=== PATIENT | male | born 2005 ===

== ENCOUNTER 2025-01-30 19:21 | Outpatient (REF) | payer OTHER, SELFPAY ==
--- NOTE | ~2025-01-30 | MR_ITS ---
EXAMINATION: MR SHOULDER WITHOUT CONTRAST, LEFT CLINICAL INFORMATION: Dislocation COMPARISON: None available. TECHNIQUE: MRI of the shoulder without contrast was performed on a high-field scanner. FINDINGS: ROTATOR CUFF: Supraspinatus: Mild tendinosis Infraspinatus: Intact Teres minor: Intact Subscapularis: Mild tendinosis No muscle atrophy or fatty infiltration. BICEPS: Intact CORACOACROMIAL ARCH: The undersurface of the acromion is curved with no subacromial spur. Acromioclavicular joint space is maintained. Mild T2 signal in the acromion, could reflect physiological variant signal, mild osseous contusion LABRUM/CAPSULE: There is a tear of the anterior labrum. T2 signal in the superior labrum and the posterosuperior labrum, suspicious for involvement by tear. Inferior glenohumeral ligament/capsule is intact GLENOHUMERAL JOINT/MARROW: Hill-Sachs injury, with marrow edema, with bony depression of the posterior humeral head measuring 2.3 x 0.9 cm, depression measuring approximately 0.6 cm. Mild edema of the anteroinferior bony glenoid, suggestive osseous contusion. No displaced fracture fracture is. Correlate with x-ray. Large joint effusion. MR/MR shoulder LT wo con IMPRESSION: * Mild supraspinatus and subscapularis tendinosis. * Anteroinferior labrum is torn.. Abnormal findings suggestive of tear involving the superior and the posterosuperior labrum as well, detailed above. * Hill-Sachs injury measuring 2.3 x 0.9 cm. Associated marrow edema. * Mild edema in the anteroinferior glenoid, suggestive osseous contusion. No displaced fractures identified. Correlate with x-ray. *Large glenohumeral joint effusion. *Signal in the acromion could reflect physiological variant signal versus osseous contusion. Electronically signed by: Pj Rodriguez MD 01/31/2025 09:21 AM [facility]
--- OUTSIDE RECORDS SUMMARY | 2025-01-30 21:08 | XMS_ITS | Patient Health Record ---
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
--- OUTSIDE RECORDS SUMMARY | 2025-01-30 21:08 | XMS_ITS | Clinical Summary ---
Author Organization [facility] ([facility]) Address [address] [place] [address] Care Team Providers Care Filtration Supervisor Name Role Phone Hesham Messer MD Primary Care Provider [phone] Allergies No known active allergies Medications No known medications Active Problems Problem Noted Date Diagnosed Date Distal radius fracture 12/24/2014 Other closed fractures of distal end of radius ( alone) 11/24/2014 Family History Medical History Relation Name Comments No Known History Mother Relation Name Status Comments Mother Social History Tobacco Use Types Packs/Day Years Used Date Smoking Tobacco: Never Passive Smoke Exposure: Yes Tobacco Cessation:Counseling Given: Not Answered Alcohol Use Standard Drinks/Week Comments No 0 (1 standard drink = 0.6 oz pur e alcohol) Utilities Answer Date Recorded Utilities at risk Not on file 10/04/2022 Interpersonal Safety Assessment In Office Answer Date Recorded Signs and Symptoms of Abuse or Neglect No 12/08/2022 Physically Abused Not on file 12/08/2022 Feels unsafe Not on file 12/08/2022 Sex and Gender Information Value Date Recorded Sex Assigned at Not on file Legal Sex Male 3:41 AM EDT Gender Identity Not on file Sexual Orientation Not on file Last Filed Vital Signs Vital Sign Reading Time Taken Comments Blood Pressure 113/71 12/24/2014 8:42 AM EDT Pulse - - Temperature 36 C (96.8 F) 12/24/2014 8:42 AM EDT Respiratory Rate - - Oxygen Saturation - - Inhaled Oxygen Concentration - - Weight 99.3 kg (218 lb 14.7 oz) 12/29/2022 8:59 AM EDT Height 190.5 cm (6' 3 ) 12/29/2022 8:59 AM EDT Body Mass Index 27.36 12/29/2022 8:59 AM EDT Plan of Treatment Health Maintenance Due Date Last Done Comments HIV Screening (Once) 2004 Hepatitis C Screening (Once) 2004 Meningococcal B Vaccine (1 of 2 - Standard) 2020 COVID-19 Vaccine (3 - season) 2024 06/01/2021, 11/24/2020 Influenza Vaccine (#1) 2024 11/16/2019 Tetanus Vaccine (7 - Td or Tdap) 09/22/2026 09/22/2016, 07/16/2010, 06/22/2006, Additional history exists Zoster Vaccine (1 of 2) 2054 07/16/2010, 06/22 Pneumonia Age 0-64 Aged Out 09/09/2005, 06/07/2005 No longer eligible based on patient's age to complete this topic Hepatitis B Vaccine Completed 11/15/2005, 04/05/2005, 01/05/2005 HiB Vaccines Completed 05/02/2006, 08/13, 06/07/2005, Additional history exists HPV Vaccines Completed 11/16/2019, 09/22/2016 Meningococcal Vaccine Completed 10/04/2022, 017 Hepatitis A Vaccine Aged Out No longe r eligible based on patient's age to complete this topic Insurance * Guarantor: SAEED,ALESSANDRA Account Type Relation to Patient Date of Phone Billing Address Personal/Family Mother 1982 [id number] [place] [address] [employer] Care Teams Filtration Supervisor Relationship Specialty [place] [id number] [place] [address] PCP - General Pediatrics 11/24/14
--- OUTSIDE RECORDS SUMMARY | 2025-01-30 21:08 | XMS_ITS | Clinical Summary ---
Author Organization [facility] Address [address] [place], [place] [id number] Phone Care Team Providers Care Keyseater Operator Name Role Phone Aleksander Louie Primary Care Provider [phone] Social History Tobacco Use Types Packs/Day Years Used Date Smoking Tobacco: Never Assessed Education Answer Date Recorded Are you interested in more education? Not on denilson e 02/10/2024 Are you concerned about learning? Not on file 02/10/2024 No 02/10/2024 No 02/10/2024 Digital Access Answer Date Recorded No 02/10/2024 No 02/10/2024 Reliable internet access at home? Not on file 02/10/2024 Device with a working camera? Not on file Sex and Gender Information Value Date Recorded Sex Assigned at Not on file Legal Sex Male 3:19 PM EST Gender Identity Not on file Sexual Orientation Not on file Plan of Treatment Health Maintenance Due Date Last Done Comments MMR VACCINES (1 of 1 - Stand hebert series) 2005 DEVELOPMENTAL/BEHAVIORAL SCR EENING (PHQ, PSC, or SWYC) 01/01/2008 COMBINED DTaP,Tdap,Td (1 - Tdap) 01/01/2012 DEPRESSION SCREENING 2016 SMOKING Hx and SMOKELESS TOB ACCO SCREENING 2017 VARICELLA VACCINES (1 of 2 - 13+ 2-dose series) 2017 HPV VACCINES (1 - Male 3-dos e series) 01/01/2020 MENINGOCOCCAL VACCINES (B) ( 1 of 2 - Standard) 2020 ADOLESCENT UNIVERSAL LIPID SCREENING 2021 HEPATITIS C SCREENING 2022 HIV ONE-TIME SCREENING (18-6 5 YEARS) 2022 INFLUENZA VACCINE (#1) 2024 COVID-19 VACCINE (1 - 2024-2 6 season) 2024 HEPATITIS A VACCINES Aged Out No long er eligible based on patient's age to complete this topic HIB VACCINES Aged Out No longer eligi ble based on patient's age to complete this topic IPV VACCINES Aged Out No longer eligi ble based on patient's age to complete this topic MENINGOCOCCAL VACCINES (ACWY) Aged Out No longer eligible based on patient's age to complete this topic PNEUMOCOCCAL VACCINES (0-49 years) Aged Out No longer eligible based on patient's age to complete this topic Medical Devices Not on file Insurance [facility] [employer] T[place] [id number] [address] [place] GENERIC COMMERCIAL [facility] GENERIC COMMERCIAL [employer]UTHIE [employer] GENERIC COMMERCIAL RUTHIE SANDERS GENERIC COMMERCIAL [place] [id number] [facility] [facility] [place] [id number] Care Teams Keyseater Operator Relationship Specialty Start Date End Date Aleksander Louie DO [address] [place] [id number] PCP - General Family Medicine 02/10/24 Additional Source Comments The information contained in this document represents components of the legal health record. It is not the complete legal health record.[facility]
== END 2025-01-30 19:22 | disposition home or self-care (01) ==
LOC: HO.MRI 19:21
PROVIDERS: Visit Provider Family Medicine
DX: S43.005A Unspecified dislocation of left shoulder joint, initial encounter (principal)
CPT/HCPCS: 73221

== ENCOUNTER → 2025-01-30 19:25 | Outpatient (BNV) | payer OTHER, SELFPAY | PROVIDERS: Visit Provider Radiology Diagnostic Ultrasound | DX: S42.295A Other nondisplaced fracture of upper end of left humerus, initial encounter for closed fracture (principal) | CPT/HCPCS: 73221 ==

== ENCOUNTER 2025-02-03 12:16 | Outpatient (AMB) | payer OTHER, SELFPAY ==
--- NOTE | 2025-02-03 12:17 | A.OFFVIS_ITS ---
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 On failed closed reduction obtain an MRI ordered and obtained. No further problems. Has been daron to restart PT. Denies numbness and tingling. Physical Exam Exam Exam: Bruising over the lateral deltoid but skin intact to light touch lateral deltoid. Firing EHL/FDP/IO Results Reviewed Results Reviewed: I personally reviewed the MR images. * Mild supraspinatus and subscapularis tendinosis. * Anteroinferior labrum is torn.. Abnormal findings suggestive of tear involving the superior and the posterosuperior labrum as well, detailed above. * Hill-Sachs injury measuring 2.3 x 0.9 cm. Associated marrow edema. * Mild edema in the anteroinferior glenoid, suggestive osseous contusion. No displaced fractures identified. Correlate with x-ray. *Large glenohumeral joint effusion. 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 Reduced on the field. He has a large Hill-Sachs and sequela of large dislocation event. Had a long discussion regarding treatment options. First step is physical therapy for the next 2 weeks. Options after that we will be discussed. We briefly discussed nonsurgical versus surgical pros and cons. I will discuss with my colleagues prior to any further decisions being made. I answered questions with patient's mom on the phone. He unde rstands the plan is for PT and he will obviously not be participating in any competition for the remainder of the season. Coding Level of Care Code New Pt Level 4 (30435) Diagnoses Traumatic anterior dislocation of left shoulder S43.015A
--- OUTSIDE RECORDS SUMMARY | 2025-02-03 16:17 | XMS_ITS | Clinical Summary ---
Author Organization [facility] ([facility]) Address [address] [place] [address] Care Team Providers Care Screw Cutter Name Role Phone Hesham Messer MD Primary Care Provider [phone] Allergies No known active allergies Medications No [...] Personal/Family Mother 1983 [phone] [place] [address] [employer] Care Teams Screw Cutter Relationship Specialty [place] [id number] [place] [address] PCP - General Pediatrics 11/24/14
--- OUTSIDE RECORDS SUMMARY | 2025-02-03 16:17 | XMS_ITS | Clinical Summary ---
Author Organization [facility] Address [address] [place], [place] [id number] Phone Care Team Providers Care Asset Protection Agent Name Role Phone Aleksander Louie Primary Care Provider [phone] Social History Tobacco Use Types Packs/Day Years [...] topic Medical Devices Not on file Insurance [employer] [facility] [place] [id number] [employer] [facility] GENERIC COMMERCIAL [facility] GENERIC COMMERCIAL [facility] GENER[facility]ERCIAL [facility] [employer] COMMERCIAL T[place]ONS [id number] [address] GENERIC COMMERCIAL [place] [id number] Care Teams Asset Protection Agent Relationship Specialty Start Date End Date Aleksander Louie DO [address] [place] [id number] PCP - General Family Medicine 02/10/24 Additional Source Comments The information contained in this document represents components of the legal health record. It is not the complete legal health record.[facility]
== END 2025-02-03 12:22 | disposition home or self-care (01) ==
LOC: HO.HMGUMA 12:16
PROVIDERS: Visit Provider Orthopaedic Surgery
DX: S43.015A Anterior dislocation of left humerus, initial encounter (principal)
CPT/HCPCS: 99204